=== PATIENT | male | born 1985 | race Asian ===

== ENCOUNTER 2022-03-29 11:03 | Emergency (ER) | payer MEDICAID ==
[~2022-03-29] VITALS: Ht 167.6 cm; Wt 72.6 kg
--- NOTE | 2022-03-29 11:34 | NUR ---
PT BIB SEKLF AWAKE AND ALERT AOX4. NO SOB OR DISTRESS. PT C/O LACERATION LEFT EAR WHICH OCCURED AT 1000 TODAY WHILE PT WAS WORKING AT HOME. PT STATED A PRESSURE PUMP EXPLODED AND CUT HIS EAR. NO OTHER INJURY REPORTED BY BT. PT DID STATE HE HAS RINGING IN HIS EAR. PT STATES PAIN 07/15. DENIES N/V. NO ACTIVE BLEEDING UPON ARRIVAL.
--- NOTE | 2022-03-29 11:37 | NUR ---
MD DR BOND AT BEDSIDE
--- NOTE | 2022-03-29 11:53 | NUR ---
MD DR BOND AT BEDSIDE TREATING L EAR LACERATION
[2022-03-29] MEDS ORDERED: CEPH-548 PO (11:55)
[2022-03-29 12:00] VITALS: BP_SYST 129
--- NOTE | 2022-03-29 12:01 | NUR ---
Patient given written and verbal discharge instructions and verbalizes understanding. ER MD DR BOND discussed with patient the results and treatment provided. Patient in stable condition. ID arm band removed. IV catheter removed intact and dressing applied, no active bleeding. Rx of CEPHALEXIN given. Patient educated on pain management and to follow up with PMD. Pain Scale 3/10. Opportunity for questions provided and answered. Medication side effect fact sheet provided.
== END 2022-03-29 12:01 | disposition home or self-care (01) ==
LOC: SED 11:03
DX: S01.312A Laceration without foreign body of left ear, initial encounter (principal); Z79.899 Other long term (current) drug therapy; W26.8XXA Contact with other sharp object(s), not elsewhere classified, initial encounter; Y93.89 Activity, other specified; Y92.89 Other specified places as the place of occurrence of the external cause; Y99.8 Other external cause status
CPT/HCPCS: 99283